=== PATIENT | male | born 1960 | race Two or more races ===

== ENCOUNTER → 2018-09-07 | Outpatient (CLI) | payer OTHER ==
--- NOTE | 2018-09-07 17:09 | CONS ---
Assessment/Plan Assessment/Plan Hospital Course (Demo Recall) This is a 58-year-old male who is just over 7 weeks status post a right knee injury. He has a multi-ligamentous knee injury including ACL tear and sprains of the LCL and MCL as well as the posterior lateral corner. He also has a lateral meniscus tear. On examination his posterior lateral corner appears to be well-healed. His varus and valgus stress on examination is equal to the contralateral knee. There is no significant finding in the dial test. He does have significant positive Avtar and anterior drawer test. Given his age and improvement to his other ligamentous injuries I would recommend continuing conservative treatment with an ACL brace and aggressive physical therapy. Patient is to return to clinic in 12 weeks Consultation Date/Type/Reason Admit Date/Time Date of Consultation: Sep 07, 2018 Reason for Consultation Right knee pain Date/Time of Note DATE: 09/07/18 TIME: 16:58 Hx of Present Illness Is a 58-year-old male with a chief complaint of right knee pain. The pain began approximately 40 days ago. The patient fell off a two-step stepstool. He twisted his knee. He did not feel a pop but his knee instantly became swollen. Overall his knee pain has improved but continues to complain of significant weakness and instability in the knee. The patients pain is in the anterior and posterior aspect of the right knee. Pain is not radiating to the lower leg. The pain is rated as a 4/10. Patient denies complaints of numbness or tingling. The pain is exacerbated by climbing stairs and ambulation and standing for long p eriods of time. He has been using ice. Duration: 40 days Injury: Yes Walking tolerance: 1 block Limp: Yes Support: No Swelling: Yes Crepitation: Yes Instability: Yes Stairs: Difficult Physical Therapy: No Injections: No NSAIDs: No Prior surgery: No Back pain: Yes Hip pain: No Risk of AVN : No Patient denies fever, chills, shortness of breath, chest pain, nausea/vomiting, constipation, diarrhea, numbness, and tingling. Past Medical History Denies past medical history Past Surgical History Past Surgical Hx: noncontributory Family History Significant Family History: no pertinent family hx Social History Alcohol Use: occasionally (1 drink a week) Smoking Status: Current every day smoker (Half pack per day) Drug Use: none Exam/Review of Systems Exam Vitals Weight: 200 pounds Height: 6 feet 2 inches Temperature: 98.6 Heart Rate: 72 Blood Pressure: 135/72 Exam General: Alert, oriented x3. No Acute Distress. Heart: Regular rate and rhythm. Lungs: No respiratory distress. No accessory muscle use. Musculoskeletal: Right Knee This is a well developed thin male who is alert, oriented times three and in no apparent distress. Skin is intact over the right knee as well as the lower extremity with no abrasions, lacerations, or ulcerations. Observation of the patient's gait reveals a s lightly antalgic gait with No thrust. Frontal plane alignment is neutral. There is no pain to palpation of either joint line, MCL, LCL. The patient demonstrates grinding anteriorly with ROM. Range of motion: 0 extension to approximately 140 degrees of flexion. Collateral ligament testing reveals no instability with varus or valgus stress at 0 and 30 degrees of flexion. Positive Avtar's and anterior drawer and negative posterior drawer. Negative dial test. Neurovascularly intact with 5/5 EHL/tibialis anterior/gastroc. Sensation intact to light touch in a sural, saphenous, deep peroneal, superficial peroneal, medial and lateral plantar nerve distribution. Palpable, symmetric dorsalis pedis and posterior tibial pulses in both lower extremities. Hip examination normal. Imaging Imaging MRI of the right knee from 08/06/2018 was personally reviewed. Acute high-grade versus full-thickness ACL tear. Radial tear of the central aspect of the posterior horn of lateral meniscus with a minimally impacted osteochondral fracture. There is a high-grade chondral lesion in that area as w ell. Moderate grade proximal lateral collateral ligament sprain and popliteus myotendinous junction strain along with low-grade posterior lateral capsular sprain. Low-grade MCL sprain. Moderate knee joint effusion. MAYKEL RUCKER MD Sep 07, 2018 17:09
== END | disposition home or self-care (01) ==
LOC: HKI 14:57
PROVIDERS: ATTEND Orthopaedic Surgery Adult Reconstructive Orthopaedic Surgery
DX: M25.561 Pain in right knee (principal); F17.210 Nicotine dependence, cigarettes, uncomplicated
CPT/HCPCS: G0463